=== PATIENT | female | born 1960 | race Caucasian/White ===

== ENCOUNTER → 2020-07-23 | Outpatient (CLI) | payer OTHER | END | disposition home or self-care (01) | LOC: CFH 10:26 | PROVIDERS: ATTEND Specialist | DX: Z12.31 Encounter for screening mammogram for malignant neoplasm of breast (principal); N63.11 Unspecified lump in the right breast, upper outer quadrant | CPT/HCPCS: 77063; 77067 ==

== ENCOUNTER → 2020-08-04 | Outpatient (CLI) | payer OTHER | END | disposition home or self-care (01) | LOC: CFH 07:00 | PROVIDERS: ATTEND Specialist | DX: R92.8 Other abnormal and inconclusive findings on diagnostic imaging of breast (principal) | CPT/HCPCS: 76642; 77065 ==

== ENCOUNTER 2020-08-28 13:51 | Emergency (ER) | payer OTHER ==
[~2020-08-28] VITALS: Ht 165.1 cm; Wt 70.0 kg
[2020-08-28 14:56] LABS: BASOPHILS % (AUTO) 1 % (0-1); EOSINOPHILS % (AUTO) 2 % (1-7); LYMPHOCYTES % (AUTO) 33 % (22-44); MEAN CORPUSCULAR HEMOGLOBIN 33.2 pg (27.0-34.8); MEAN CORPUSCULAR HGB CONC 34.7 g/dL (32.4-35.8); MEAN PLATELET VOLUME 7.3 fL (7.4-10.4); MONOCYTES % (AUTO) 6 % (2-9); NEUTROPHILS % (AUTO) 58 % (42-75); PLATELET COUNT 303 x10^3/uL (130-400); RED BLOOD COUNT 4.06 x10^6/uL (3.82-5.3); RED CELL DISTRIBUTION WIDTH 12.7 % (9.6-15.2)
[2020-08-28 15:03] LABS: MD NO
[2020-08-28 15:08] LABS: ALBUMIN 4.1 g/dL (3.4-5.0); ANION GAP 6 mmol/L (5-15); CALCIUM 9.1 mg/dL (8.5-10.1); CHLORIDE 106 mmol/L (98-107); CREATININE 0.74 mg/dL (0.55-1.02)
[2020-08-28 15:38] VITALS: BP 105/56
== END 2020-08-28 17:28 | disposition home or self-care (01) ==
LOC: ED 15:04
DX: M25.561 Pain in right knee (principal); M79.661 Pain in right lower leg; M79.89 Other specified soft tissue disorders; Z88.8 Allergy status to other drugs, medicaments and biological substances
CPT/HCPCS: 36415; 80048; 82040; 85025; 99285

== ENCOUNTER 2020-09-24 12:00 | Emergency (ER) | payer OTHER ==
[~2020-09-24] VITALS: Ht 165.1 cm; Wt 72.2 kg
--- NOTE | 2020-09-24 12:13 | NUR ---
PA AT BS
[2020-09-24] MEDS ORDERED: KETOROLAC 30 MG/1 ML IM ONE (12:30)
--- NOTE | 2020-09-24 12:45 | NUR ---
PT BACK FROM XRAY
[2020-09-24] MEDS ORDERED: KETOROLAC 30 MG/1 ML ONE (12:48)
[2020-09-24 14:04] VITALS: BP 126/83
--- NOTE | 2020-09-24 14:05 | NUR ---
Patient/Caregiver given discharge instructions and they have confirmed that they understand the instructions. Patient ambulatory with steady gait.
== END 2020-09-24 14:06 | disposition home or self-care (01) ==
LOC: ED 12:36
DX: S46.012A Strain of muscle(s) and tendon(s) of the rotator cuff of left shoulder, initial encounter (principal); W01.0XXA Fall on same level from slipping, tripping and stumbling without subsequent striking against object, initial encounter; Y93.01 Activity, walking, marching and hiking; Y92.009 Unspecified place in unspecified non-institutional (private) residence as the place of occurrence of the external cause; Y99.8 Other external cause status
CPT/HCPCS: 29105; 73030; 96372; 99283; J1885

== ENCOUNTER 2020-11-19 14:47 | Day surgery (SDC) | payer OTHER, MEDICAID ==
[~2020-11-19] VITALS: Ht 165.1 cm; Wt 72.6 kg
[2020-11-19] MEDS ORDERED: ROPIvacaine/PF 0.5%, 30 ML ONE (14:48)
[2020-11-19] MEDS ORDERED: LIDOCAINE/PF 1%, 30ML ONE (14:48)
[2020-11-19] MEDS ORDERED: EPINEPHRINE 1 MG/ML, 1ML ONE (14:48)
[2020-11-19 15:13] VITALS: BP 121/80
[2020-11-19] MEDS ORDERED: LEVOTHYROXINE PO (15:26)
[2020-11-19] MEDS ORDERED: QUETIAPINE PO (15:26)
[2020-11-19] MEDS ORDERED: KRILL OIL PO (15:26)
[2020-11-19] MEDS ORDERED: FAMO-79 PO (15:26)
[2020-11-19] MEDS ORDERED: MAGNESIUM PO (15:26)
[2020-11-19] MEDS ORDERED: VITAMIN D3 PO (15:26)
[2020-11-19] MEDS ORDERED: VITAMIN B COMPLEX PO (15:26)
[2020-11-19] MEDS ORDERED: TUMERIC PO (15:26)
[2020-11-19] MEDS ORDERED: VENTOLIN INH (15:26)
[2020-11-19] MEDS ORDERED: VITAMIN B12 PO (15:26)
[2020-11-19] MEDS ORDERED: CHLORHEXIDINE 15 ML UDC PO ONE (15:30)
[2020-11-19] MEDS ORDERED: LACTATED RINGERS 1,000 ML IV SCH (15:30)
[2020-11-19] MEDS ORDERED: CHLORHEXIDINE 15 ML UDC ONE (15:31)
[2020-11-19] MEDS ORDERED: FENTANYL PF 250 MCG/5ML ONE (16:07)
[2020-11-19] MEDS ORDERED: MIDAZOLAM 1 MG/ML, 2ML ONE (16:07)
[2020-11-19] MEDS ORDERED: ONDANSETRON 2MG/ML, 2ML ONE (16:08)
[2020-11-19] MEDS ORDERED: PROPOFOL 10 MG/ML, 20ML ONE (16:08)
[2020-11-19] MEDS ORDERED: CEFAZOLIN 1,000 MG ONE (16:08)
[2020-11-19] MEDS ORDERED: DEXAMETHASONE 4 MG/ML, 1ML ONE (16:08)
[2020-11-19] MEDS ORDERED: SCOPOLAMINE 1MG PATCH TD ONE (16:20)
[2020-11-19] MEDS ORDERED: PROMETHAZINE 25 MG/ML, 1ML IVPush PRN (16:30)
[2020-11-19] MEDS ORDERED: HALOPERIDOL 5 MG/ML IV PRN (16:30)
[2020-11-19] MEDS ORDERED: LABETALOL 5MG/ML, 20ML IV PRN (16:30)
[2020-11-19] MEDS ORDERED: hydrALAzine 20 MG/ML, 1ML IV PRN (16:30)
[2020-11-19] MEDS ORDERED: ACETAMINOPHEN 325 MG TABLET PO PRN (16:30)
[2020-11-19] MEDS ORDERED: FENTANYL PF 100 MCG/2ML IV PRN (16:30)
[2020-11-19] MEDS ORDERED: MEPERIDINE/PF 25MG/0.5ML IVPush PRN (16:30)
[2020-11-19] MEDS ORDERED: PROPOFOL 50 ML ONE (16:34)
[2020-11-19] MEDS ORDERED: KETOROLAC 30 MG/1 ML ONE (17:26)
[2020-11-19] MEDS ORDERED: FENTANYL PF 100 MCG/2ML ONE (17:33)
[2020-11-19] MEDS ORDERED: ACETAMINOPHEN 650 MG/20.3 ML UDC ONE (17:33)
== END 2020-11-19 19:11 | disposition home or self-care (01) ==
LOC: OR 14:47
PROVIDERS: ATTEND Orthopaedic Surgery
DX: S83.241A Other tear of medial meniscus, current injury, right knee, initial encounter (principal); M17.11 Unilateral primary osteoarthritis, right knee; M65.861 Other synovitis and tenosynovitis, right lower leg; E03.9 Hypothyroidism, unspecified; K21.9 Gastro-esophageal reflux disease without esophagitis; Z79.890 Hormone replacement therapy; Z79.899 Other long term (current) drug therapy; Z88.5 Allergy status to narcotic agent; X58.XXXA Exposure to other specified factors, initial encounter; Y93.89 Activity, other specified; Y92.89 Other specified places as the place of occurrence of the external cause; Y99.8 Other external cause status
CPT/HCPCS: 29881; J0171; J0690; J1100; J2250; J2405; J2704; J2795; J3010; J7120

== ENCOUNTER 2020-12-18 11:04 | Day surgery (SDC) | payer OTHER, MEDICAID ==
[~2020-12-18] VITALS: Ht 165.1 cm; Wt 73.4 kg
[~2020-12-18 11:04] MED LIST: FAMO-79 PO; KRILL OIL PO; LEVO125T5 PO; LEVOTHYROXINE PO; MAGNESIUM PO; QUET50TA5 PO; QUETIAPINE PO; TUMERIC PO; VENTOLIN INH; VITAMIN B COMPLEX PO; VITAMIN B12 PO; VITAMIN D3 PO
[2020-12-18 11:32] VITALS: BP 122/84
[2020-12-18] MEDS ORDERED: CHLORHEXIDINE 15 ML UDC PO ONE (12:00)
[2020-12-18] MEDS ORDERED: LACTATED RINGERS 1,000 ML IV SCH (12:00)
[2020-12-18] MEDS ORDERED: BUPIVACAINE/PF 0.5% ONE (12:11)
[2020-12-18] MEDS ORDERED: FENTANYL PF 100 MCG/2ML ONE (12:37)
[2020-12-18] MEDS ORDERED: MIDAZOLAM 1 MG/ML, 2ML ONE (12:37)
[2020-12-18] MEDS ORDERED: PROPOFOL 10 MG/ML, 20ML ONE (12:38)
[2020-12-18] MEDS ORDERED: DEXAMETHASONE 4 MG/ML, 1ML ONE (12:38)
[2020-12-18] MEDS ORDERED: SUCCINYLCHOLINE 20 MG/ML, 10ML ONE (12:38)
[2020-12-18] MEDS ORDERED: ONDANSETRON 2MG/ML, 2ML ONE (12:38)
[2020-12-18] MEDS ORDERED: CEFAZOLIN 1,000 MG ONE (12:38)
[2020-12-18] MEDS ORDERED: LIDOCAINE/PF 1%, 30ML ONE (13:32)
[2020-12-18] MEDS ORDERED: EPINEPHRINE 1 MG/ML, 1ML ONE (13:32)
[2020-12-18] MEDS ORDERED: EPHEDRINE 50 MG/ML, 1ML IVPush PRN (14:00)
[2020-12-18] MEDS ORDERED: LABETALOL 5MG/ML, 20ML IV PRN (14:00)
[2020-12-18] MEDS ORDERED: MEPERIDINE/PF 25MG/0.5ML IVPush PRN (14:00)
[2020-12-18] MEDS ORDERED: ACETAMINOPHEN 325 MG TABLET PO PRN (14:00)
[2020-12-18] MEDS ORDERED: PROMETHAZINE 25 MG/ML, 1ML IVPush PRN (14:00)
[2020-12-18] MEDS ORDERED: ONDANSETRON 2MG/ML, 2ML IVPush PRN (14:00)
[2020-12-18] MEDS ORDERED: hydrALAzine 20 MG/ML, 1ML IV PRN (14:00)
[2020-12-18] MEDS ORDERED: FENTANYL PF 100 MCG/2ML IV PRN (14:00)
[2020-12-18] MEDS ORDERED: LIDOCAINE-MPF 2% ,5ML ONE (14:12)
[2020-12-18] MEDS ORDERED: SODIUM CHLORIDE 0.9% PF 10ML ONE (14:12)
[2020-12-18] MEDS ORDERED: KETOROLAC 30 MG/1 ML ONE (14:12)
[2020-12-18] MEDS ORDERED: CLINDAMYCIN 150 MG/ML, 6ML ONE (14:17)
[2020-12-18] MEDS ORDERED: EPHEDRINE 50 MG/ML, 1ML ONE (14:34)
== END 2020-12-18 17:20 | disposition home or self-care (01) ==
LOC: OUT 11:04
PROVIDERS: ATTEND Orthopaedic Surgery
DX: S46.012A Strain of muscle(s) and tendon(s) of the rotator cuff of left shoulder, initial encounter (principal); S43.432A Superior glenoid labrum lesion of left shoulder, initial encounter; M75.52 Bursitis of left shoulder; M65.812 Other synovitis and tenosynovitis, left shoulder; M25.512 Pain in left shoulder; F17.210 Nicotine dependence, cigarettes, uncomplicated; W19.XXXA Unspecified fall, initial encounter; Y93.89 Activity, other specified; Y92.89 Other specified places as the place of occurrence of the external cause; Y99.8 Other external cause status; Z88.5 Allergy status to narcotic agent; Z88.8 Allergy status to other drugs, medicaments and biological substances; Z72.89 Other problems related to lifestyle
CPT/HCPCS: 23430; 29820; 29822; 29826; 29827; 64415; C1713; J0171; J0330; J0690; J1100; J1885; J2250; J2405; J2704; J3010; J7120